=== PATIENT | female | born 1955 | race African-American/Black ===

== ENCOUNTER 2017-01-12 21:45 | Emergency (ER) | payer OTHER ==
[~2017-01-12] VITALS: Ht 157.5 cm; Wt 97.5 kg
[~2017-01-12 21:45] MED LIST: FLEXERIL PO; NAPROXEN PO
[2017-01-13 00:23] LABS: BASOPHIL# 0.1 X10e3 (0-0.3); BASOPHIL% 0.8 % (0-2.5); EOSINOPHIL# 0.1 X10e3 (0-0.7); EOSINOPHIL% 1.9 % (0.0-7.0); HEMATOCRIT 42.8 % (35.0-45.0); HEMOGLOBIN 14.5 gm/dL (12.0-16.0); LYMPHOCYTE# 1.4 X10e3 (1.0-3.5); LYMPHOCYTE% 20.1 % (17.0-45.0); MEAN CELL VOLUME 83.1 FL (83-96); MEAN CORPUSCULAR HEMOGLOBIN 28.1 PG (28-34); MEAN CORPUSCULAR HGB CONC 33.8 g/dL (30-36); MEAN PLATELET VOLUME 10.7 FL (6.5-11.5); MONOCYTE# 0.6 X10e3 (0-1.0); MONOCYTE% 8.6 % (3.0-12.0); NEUTROPHIL# 4.7 X10e3 (1.5-7.1); NEUTROPHIL% 68.6 % (40-75); PLATELET COUNT 148 X10e3 (140-420); RED BLOOD COUNT 5.15 X10e (3.90-5.30); WHITE BLOOD COUNT 6.9 X10e3 (4.0-10.5)
[2017-01-13 00:24] LABS: DIFF IND NO
[2017-01-13] MEDS ORDERED: METFORMIN PO (00:35)
[2017-01-13] MEDS ORDERED: VERAPAMIL ER240 MG PO (00:35)
[2017-01-13] MEDS ORDERED: HYDROCHLOROTHIA25 MG PO (00:36)
[2017-01-13] MEDS ORDERED: ZESTRIL40 MG PO (00:36)
[2017-01-13 00:47] LABS: ALBUMIN SERUM 4.2 g/dL (3.5-5.0); BETA HYDROXYBUTYRATE 0.16 MMOL/L (0.02-0.27); BILIRUBIN,TOTAL 0.9 mg/dL (0.2-2.0); CALCIUM SERUM 9.2 mg/dL (8.4-10.2); GLOM FILT RATE Estimated 70.5 mL/min (>60); POTASSIUM 3.9 mmol/L (3.5-5.1); PROTEIN TOTAL SERUM 8.2 g/dL (6.0-8.3)
[2017-01-13 00:48] LABS: BILIRUBIN, DIRECT 0.1 mg/dL (0.0-0.2); BILIRUBIN,INDIRECT 0.8 mg/dL (0.0-0.9)
[2017-01-13 01:23] LABS: URINE SOURCE CLEAN CATCH
[2017-01-13 01:57] LABS: CULTURE INDICATED? YES; U HYALINE CASTS AUWI 0-2 /[LPF]; URBCS1 AUWI 0-2 /[HPF] (0-2); URINE APPEARANCE CLEAR; URINE BACTERIA AUWI 1+ (NEGATIVE); URINE BILIRUBIN NEG (NEG); URINE BLOOD NEG (NEG); URINE COLOR YELLOW; URINE GLUCOSE >1000 MG/DL (NEG); URINE KETONE NEG (NEG); URINE LEUKOCYTE ESTERASE 1+ (NEG); URINE NITRATE NEG (NEG); URINE PROTEIN NEG (NEG); URINE SPECIFIC GRAVITY 1.035 (1.003-1.035); URINE SQUAMOUS EPITHELIAL CELL OCC /[HPF]; URINE UROBILINOGEN 0.2 MG/DL (NEG); UWBCS1 AUWI 25-50 (0-5)
== END 2017-01-13 02:10 | disposition home or self-care (01) ==
LOC: CED 21:45
PROVIDERS: Emergency Medicine
DX: I10 Essential (primary) hypertension (principal); E11.65 Type 2 diabetes mellitus with hyperglycemia; N30.00 Acute cystitis without hematuria; Z79.899 Other long term (current) drug therapy; Z79.4 Long term (current) use of insulin
CPT/HCPCS: 36415; 80048; 80076; 81003; 82010; 82947; 85025; 87086; 96361; 96374; 99284